=== PATIENT | male | born 1970 | race Caucasian/White ===

== ENCOUNTER 2020-10-18 23:55 | Emergency (ER) | payer MEDICAID ==
[~2020-10-18] VITALS: Ht 167.6 cm; Wt 88.0 kg
[2020-10-19] MEDS ORDERED: ONDANSETRON HCL 4MG/2ML INJ IV STA (00:35)
[2020-10-19] MEDS ORDERED: KETOROLAC 30MG/ML VIAL IV STA (00:35)
[2020-10-19 01:22] LABS: CLARITY URINE CLOUDY (CLEAR); COLOR URINE YELLOW (YELLOW); KETONES URINE NEGATIVE (NEGATIVE); LEUKOCYTE ESTERASE URINE NEGATIVE (NEGATIVE); NITRITE URINE NEGATIVE (NEGATIVE); OCCULT BLOOD URINE 2+ (NEGATIVE); PROTEIN URINE NEGATIVE (NEGATIVE); SPECIFIC GRAVITY URINE 1.026 (1.005-1.030); UROBILINOGEN URINE 0.2 E.U./dL (0.2-1.0)
[2020-10-19 01:23] LABS: BASOPHILS % 0.3 % (0.0-2.0); EOSINOPHILS % 0.2 % (0.0-5.0); HEMATOCRIT. 40.5 % (42.0-52.0); HEMOGLOBIN. 13.9 g/dL (14.0-18.0); LYMPHOCYTES % 7.5 % (20.0-50.0); MEAN CORPUSCULAR HEMOGLOBIN 30.8 pg (28.0-32.0); MEAN CORPUSCULAR VOLUME 89.9 fL (80.0-94.0); MEAN PLATELET VOLUME 9.6 fl (7.4-10.4); MONOCYTES % 4.4 % (2.0-8.0); NEUTROPHILS % 87.6 % (40.0-76.0); PLATELET 192 x1000/uL (130-400); RED CELL DISTRIBUTION WIDTH 13.5 % (11.6-14.6)
[2020-10-19 01:29] LABS: CHLORIDE 107 mEq/L (98-107)
[2020-10-19 01:36] LABS: *AMPHETAMINES SCREEN URINE NEGATIVE (NEGATIVE)
[2020-10-19 01:37] LABS: *BARBITURATES SCREEN URINE NEGATIVE (NEGATIVE); *BENZODIAZEPINES SCREEN URINE NEGATIVE (NEGATIVE); *COCAINE SCREEN URINE NEGATIVE (NEGATIVE); CANNABINOID URINE SCREEN NEGATIVE (NEGATIVE); METHADONE URINE SCREEN NEGATIVE (NEGATIVE); PHENCYCLIDINE URINE SCREEN NEGATIVE (NEGATIVE)
[2020-10-19 01:38] LABS: OPIATES URINE SCREEN NEGATIVE (NEGATIVE)
[2020-10-19 01:39] LABS: ETHANOL BLOOD < 10 mg/dL
[2020-10-19 03:26] VITALS: BP 117/65
[2020-10-19] MEDS ORDERED: IBUP-2029 MT (03:33)
== END 2020-10-19 04:09 | disposition home or self-care (01) ==
LOC: ER 23:55
DX: N13.2 Hydronephrosis with renal and ureteral calculous obstruction (principal); I10 Essential (primary) hypertension; E11.9 Type 2 diabetes mellitus without complications
CPT/HCPCS: 36415; 74176; 80053; 80305; 80320; 81003; 83690; 85025; 96374; 96375; 99284; J1885; J2405; G0480